=== PATIENT | male | born 1965 | race Caucasian/White ===

== ENCOUNTER 2019-02-16 15:36 | Inpatient (IN) | payer OTHER ==
[~2019-02-16] VITALS: Ht 175.3 cm; Wt 70.3 kg
--- NOTE | 2019-02-16 16:03 | NUR ---
PT BIBSELF FOR FACIAL SWELLING D/T POSSIBLE TOOTH INFECTION; PT [id number], PT ON MONINTOR, VSS, NAD NOTED, PENDING ER PROVIDER KARENAL
[2019-02-16] MEDS ORDERED: IV NS 0.9% 1,000 ML BAG IV ONE (16:30)
[2019-02-16] MEDS ORDERED: CLINDAMYCIN 900 MG in IV D5W 100 ML IV ONE (16:30)
[2019-02-16 16:44] LABS: BASOPHILS # (AUTO) 0.1 /CMM (0.0-0.2); BASOPHILS % (AUTO) 0.5 % (0.0-2.0); EOSINOPHILS % (AUTO) 0.3 % (0.0-6.0); HEMATOCRIT 43 % (39-51); HEMOGLOBIN 14.6 g/dL (13.5-17.5); LYMPHOCYTES # (AUTO) 2.4 /CMM (0.8-4.8); LYMPHOCYTES % (AUTO) 22.9 % (20.0-44.0); MEAN CORPUSCULAR HGB CONC 34 g/dl (31.0-36.0); MEAN CORPUSCULAR VOLUME 88 fL (80-96); MONOCYTES # (AUTO) 1.6 /CMM (0.1-1.30); MONOCYTES % (AUTO) 15.7 % (2.0-12.0); NEUTROPHILS # (AUTO) 6.3 /CMM (1.8-8.9); NEUTROPHILS % (AUTO) 60.6 % (43.0-81.0); PLATELET COUNT (AUTO) 164 /CMM (150-450); RED BLOOD CELL COUNT(AUTO) 4.89 MIL/uL (4.5-6.0); WHITE BLOOD COUNT (AUTO) 10.4 K/uL (4.3-11.0)
[2019-02-16 16:54] LABS: CALCIUM, SERUM 8.9 mg/dL (8.5-10.1); CREATININE 0.9 mg/dL (0.6-1.3); POTASSIUM 3.6 mmol/L (3.5-5.1)
[2019-02-16] MEDS ORDERED: CT SWABBABLE VALVE TRANS SET 1 EA INFUS.SET MC ONE (16:57)
[2019-02-16] MEDS ORDERED: IOHEXOL-300 100 ML VIAL IV ONE (16:57)
[2019-02-16] MEDS ORDERED: IV NS 0.9% 250 ML IV ONE (16:57)
[2019-02-16 16:59] LABS: ALBUMIN 3.3 g/dL (3.4-5.0); BILIRUBIN,DIRECT 0.1 mg/dL (0.0-0.2); BILIRUBIN,TOTAL 0.4 mg/dL (0.2-1.0); TOTAL PROTEIN, SERUM 7.9 g/dL (6.4-8.2)
--- NOTE | 2019-02-16 17:04 | NUR ---
PT TO RADIOLOGY FOR FACIAL CT SCAN VIA WHEELCHAIR
--- NOTE | 2019-02-16 17:45 | NUR ---
CALLED WILLIAM TO READ CT
--- NOTE | 2019-02-16 18:47 | NUR ---
ON PHONE WITH
--- NOTE | 2019-02-16 19:07 | NUR ---
EPIC PAGED, ANIMAL THERAPIST
[2019-02-16 20:00] VITALS: BP 111/68
--- NOTE | 2019-02-16 20:27 | NUR ---
MS [id number]
--- NOTE | 2019-02-16 20:32 | NUR ---
REPORT GIVEN TO RVI RN FOR ALBAN; PT WILL BE TRANSPORTED TO 3RD FLOOR VIA [facility]
[2019-02-16 20:50] VITALS: BP 146/98
--- NOTE | 2019-02-16 20:50 | NUR ---
RECEIVED PATIENT FROM ER FOR DX LEFT SIDED FACIAL CELLULITIS. AO X 3, ABLE TO MAKE NEEDS KNOWN. NO ACUTE DISTRESS NOTED. 5/10 PAIN ON LEFT SIDE OF FACE PER PATIENT. IV SITE PATENT, INTACT; FLUSHED. SKIN INTACT. SAFETY REMINDERS GIVEN. ON LOW BED WITH BILATERAL UPPER SIDE RAILS UP. CALL ROSS WITHIN EASY REACH. WILL CONTINUE TO MONITOR.
[2019-02-16] MEDS ORDERED: ZOLPIDEM TARTRATE 5 MG TABLET PO PRN (21:30)
[2019-02-16] MEDS ORDERED: HYDROCODONE/APAP 5/325MG 1 EACH TABLET PO PRN (21:30)
[2019-02-16] MEDS ORDERED: MORPHINE SULFATE INJ 2 MG/ML DISP.SYRIN IV PRN (21:30)
[2019-02-16] MEDS ORDERED: MAG HYDROX/AL HYDROX/SIMETH 30 ML UDC PO PRN (21:30)
[2019-02-16] MEDS ORDERED: MAGNESIUM HYDROXIDE 30 ML UDC PO PRN (21:30)
[2019-02-16] MEDS ORDERED: Z GUARD REMEDY 2 OZ OINT TP PRN (21:30)
[2019-02-16] MEDS ORDERED: ACETAMINOPHEN 325 MG TABLET PO PRN (21:30)
[2019-02-16] MEDS ORDERED: ONDANSETRON HCL/PF 4 MG/2 ML VIAL IVP PRN (21:30)
[2019-02-16] MEDS: IV NS 0.9% 1,000 ML IV PRN (22:21)
[2019-02-17] MEDS ORDERED: VANCOMYCIN 1 GM in IV NS 0.9% 250 ML IV SCH (04:00)
[2019-02-17] MEDS ORDERED: VANCOMYCIN 1 GM in IV NS 0.9% 250 ML IV STA (04:12)
[2019-02-17] MEDS ORDERED: VANCOMYCIN 1 GM VIAL ONE (04:49)
[2019-02-17] MEDS ORDERED: PIPERACILLIN /TAZOBACTAM 2.25 G VIAL IV ONE (05:54)
[2019-02-17] MEDS ORDERED: PIPERACILLIN /TAZOBACTAM 4.5 G in IV D5W 50 ML IV SCH (06:00)
--- NOTE | 2019-02-17 06:15 | NUR ---
PATIENT ASLEEP, EASILY AROUSABLE. RESPIRATIONS EVEN. NO SIGNS OF PAIN NOTED. DUE MEDS GIVEN WITH NO ASE NOTED. IVF INFUSING ORDERED. NEEDS ATTENDED. SAFETY REMINDERS AND COMFORT MEASURES IN PLACE. WILL GIVE REPORT TO DAY SHIFT FOR CONTINUITY OF CARE.
[2019-02-17 06:27] LABS: BASOPHILS % (AUTO) 0.3 % (0.0-2.0); EOSINOPHILS % (AUTO) 0.5 % (0.0-6.0); HEMATOCRIT 42 % (39-51); HEMOGLOBIN 14.2 g/dL (13.5-17.5); LYMPHOCYTES # (AUTO) 1.9 /CMM (0.8-4.8); LYMPHOCYTES % (AUTO) 17.6 % (20.0-44.0); MEAN CORPUSCULAR HGB CONC 34 g/dl (31.0-36.0); MEAN CORPUSCULAR VOLUME 88 fL (80-96); MONOCYTES # (AUTO) 1.4 /CMM (0.1-1.30); MONOCYTES % (AUTO) 13.5 % (2.0-12.0); NEUTROPHILS # (AUTO) 7.2 /CMM (1.8-8.9); NEUTROPHILS % (AUTO) 68.1 % (43.0-81.0); PLATELET COUNT (AUTO) 174 /CMM (150-450); RED BLOOD CELL COUNT(AUTO) 4.76 MIL/uL (4.5-6.0); WHITE BLOOD COUNT (AUTO) 10.6 K/uL (4.3-11.0)
[2019-02-17 06:43] LABS: CALCIUM, SERUM 8.5 mg/dL (8.5-10.1); CREATININE 0.8 mg/dL (0.6-1.3); MAGNESIUM 1.8 mg/dL (1.8-2.4); PHOSPHORUS 2.8 mg/dL (2.5-4.9); POTASSIUM 3.5 mmol/L (3.5-5.1)
[2019-02-17] MEDS ORDERED: RALT400T PO (07:43)
[2019-02-17] MEDS ORDERED: ATOR40TA PO (07:43)
[2019-02-17] MEDS ORDERED: CHOL100040 PO (07:44)
[2019-02-17] MEDS ORDERED: EMTR1TAB17 PO (07:44)
--- NOTE | 2019-02-17 07:49 | NUR ---
MS RN OPENING NOTES RECEIVED PATIENT IN STABLE CONDITION. IN NO APPARENT DISTRESS. BEDSIDE RAILS ARE UPX2. BED IS LOCKED AND LOWERED. CALL LIGHT IS WITHIN REACH. IV LINE IS INTACT AND PATENT. WILL CONTINUE TO MONITOR PATIENT.
[2019-02-17 08:00] VITALS: BP 125/91
[2019-02-17] MEDS ORDERED: FEE PK DOSING 1 MIN EA MC ONE (08:07)
[2019-02-17] MEDS: SULFAMETH/TRIMETH 800/160 MG 1 UDTAB TABLET PO SCH (08:09)
[2019-02-17] MEDS: PIPERACILLIN /TAZOBACTAM 3.375 G in IV D5W 50 ML IV SCH ×2 (11:19→18:44)
[2019-02-17] MEDS: VANCOMYCIN 1.25 GM in IV D5W 500 ML IV SCH (16:03)
--- NOTE | 2019-02-17 19:01 | NUR ---
MS RN CLOSING NOTES PATIENT IS IN STABLE CONDITION. IN NO APPARENT DISTRESS. BEDSIDE RAILS ARE UPX2. BED IS LOCKED AND LOWERED. CALL LIGHT IS WITHIN REACH. IV LINE IS INTACT AND PATENT. ALL NEEDS WERE MET. WILL ENDORSE CARE TO WEB PORTAL DEVELOPER NURSE FOR ALBAN.
--- NOTE | 2019-02-17 19:30 | NUR ---
RECEIVED PATIENT IN BED AWAKE. AO X 3, ABLE TO MAKE NEEDS KNOWN. NO ACUTE DISTRESS NOTED. MONITORED FOR PAIN. IV SITE PATENT, INTACT; IVF INFUSING ORDERED. SAFETY REMINDERS GIVEN. ON LOW BED WITH BILATERAL UPPER SIDE RAILS UP. CALL ROSS WITHIN EASY REACH. WILL CONTINUE TO MONITOR.
[2019-02-17 20:00] VITALS: BP_SYST 140; BP_SYST 146; BP_DIAS 71; BP_DIAS 86
[2019-02-17] MEDS: IV NS 0.9% 1,000 ML IV PRN (20:29)
[2019-02-18] MEDS: PIPERACILLIN /TAZOBACTAM 3.375 G in IV D5W 50 ML IV SCH ×4 (00:10→18:46)
[2019-02-18] MEDS: VANCOMYCIN 1.25 GM in IV D5W 500 ML IV SCH ×2 (04:09→16:17)
[2019-02-18 06:35] LABS: BASOPHILS % (AUTO) 0.3 % (0.0-2.0); EOSINOPHILS % (AUTO) 1.5 % (0.0-6.0); HEMATOCRIT 42 % (39-51); HEMOGLOBIN 14.3 g/dL (13.5-17.5); MEAN CORPUSCULAR HGB CONC 34 g/dl (31.0-36.0); MEAN CORPUSCULAR VOLUME 88 fL (80-96); MONOCYTES % (AUTO) 15.3 % (2.0-12.0); NEUTROPHILS % (AUTO) 51.9 % (43.0-81.0); PLATELET COUNT (AUTO) 182 /CMM (150-450); RED BLOOD CELL COUNT(AUTO) 4.79 MIL/uL (4.5-6.0); WHITE BLOOD COUNT (AUTO) 6.2 K/uL (4.3-11.0)
[2019-02-18 06:36] LABS: LYMPHOCYTES # (AUTO) 1.9 /CMM (0.8-4.8); MONOCYTES # (AUTO) 0.9 /CMM (0.1-1.30); NEUTROPHILS # (AUTO) 3.2 /CMM (1.8-8.9)
[2019-02-18 07:01] LABS: CALCIUM, SERUM 8.6 mg/dL (8.5-10.1); CREATININE 1.1 mg/dL (0.6-1.3)
--- NOTE | 2019-02-18 07:45 | NUR ---
MS RN Opening Notes Patient asleep, resting in bed. Semi-Fowlers position. Alert and oriented x3, able to make needs known. No complaints of pain at this time. Respirations even and unlabored on room air, no acute distress noted. Peripheral IV to the right hand 20 gauge, intact, patent and infusing fluids as ordered. Updated patient on current plan of care and safety measures. Safety and fall precautions in place: bed in lowest and locked position, side rails up x2, bed alarm on, call light and personal possessions within reach. Will continue to monitor and intervene as needed.
[2019-02-18 08:00] VITALS: BP 132/91
[2019-02-18] MEDS: SULFAMETH/TRIMETH 800/160 MG 1 UDTAB TABLET PO SCH (08:42)
--- NOTE | 2019-02-18 12:11 | NUR ---
Patient now has personal phone refrigerator mover unit and cord at bedside, made notation on personal belongings form. Also, spoke with security staff about patient's vehicle parked in the ED parking (in front of ER). Per security, they will make a notation and not tow patient's vehicle away. Patient was updated about status.
[2019-02-18 15:43] VITALS: BP 105/72
--- NOTE | 2019-02-18 18:21 | NUR ---
MS RN Closing Notes Patient awake, resting in bed. Semi-Fowlers position. Alert and oriented x3, able to make needs known. No complaints of pain at this time. Respirations even and unlabored on room air, no acute distress noted. Peripheral IV to the right hand 20 gauge, intact, patent and infusing fluids/antibiotics as ordered. No acute events this shift. All due medications given. Updated patient on current plan of care and safety measures. Safety and fall precautions in place: bed in lowest and locked position, side rails up x2, bed alarm on, call light and personal possessions within reach. Will endorse to costumed character entertainer RN for continuity of care.
[2019-02-18] MEDS: IV NS 0.9% 1,000 ML IV PRN (18:47)
--- NOTE | 2019-02-18 19:35 | NUR ---
MS/RN NOTES RECEIVED PT. LYING IN BED. PT. IS AWAKE, ALERT AND ORIENTED X3. BREATHING EVEN AND UNLABORED ON ROOM AIR. NO SOB, RESPIRATORY DISTRESS OR COMPLAINTS OF PAIN NOTED AT THIS TIME. PT. WITH RIGHT WRIST 20 GAUGE IV NS @ 75 ML/HR. BED LOCKED AND IN LOWEST POSITION, SIDE RAILS UP X2, CALL LIGHT WITHIN REACH, WILL CONTINUE TO MONITOR.
[2019-02-18 20:07] VITALS: BP 115/72
[2019-02-19] MEDS: PIPERACILLIN /TAZOBACTAM 3.375 G in IV D5W 50 ML IV SCH ×2 (00:02→07:30)
[2019-02-19] MEDS: VANCOMYCIN 1.25 GM in IV D5W 500 ML IV SCH (05:16)
--- NOTE | 2019-02-19 06:30 | NUR ---
MS/RN NOTES PT. IS LYING IN BED RESTING. BREATHING EVEN AND UNLABORED ON ROOM AIR. NO SOB, RESPIRATORY DISTRESS OR COMPLAINTS OF PAIN NOTED AT THIS TIME. PT. WITH RIGHT WRIST 20 GAUGE IV NS @ 75 ML/HR. ALL PT. NEEDS MET. BED LOCKED AND IN LOWEST POSITION, SIDE RAILS UP X2, CALL LIGHT WITHIN REACH, WILL ENDORSE TO DAYSHIFT NURSE FOR CONTINUITY OF CARE.
[2019-02-19 07:06] LABS: *BASOS 0 % (Not Estab.); *EOS 1 % (Not Estab.); *EOS, ABSOLUTE 0.1 x10E3/uL (0.0-0.4); *HCT 44.4 % (37.5-51.0); *HGB 14.3 g/dL (13.0-17.7); *IMMATURE GRANULOCYTES 0 % (Not Estab.); *LYMPHOCYTES 35 % (Not Estab.); *LYMPHS, ABSOLUTE 2.4 x10E3/uL (0.7-3.1); *MCH 29.2 pg (26.6-33.0); *MCHC 32.2 g/dL (31.5-35.7); *MCV 91 fL (79-97); *MONOCYTES 12 % (Not Estab.); *MONOS, ABSOLUTE 0.8 x10E3/uL (0.1-0.9); *NEUTROPHILS 52 % (Not Estab.); *NEUTROPHILS, ABSOLUTE 3.4 x10E3/uL (1.4-7.0); *PLT 214 x10E3/uL (150-379); *RDW 14.3 % (12.3-15.4)
--- NOTE | 2019-02-19 07:50 | NUR ---
M/S RN PATIENT A/O X 4 AND ABLE TO MAKE NEEDS KNOWN. NO PRESENCE OF RESPIRATORY DISTRESS. ABDOMEN SOFT AND NON DISTENDED WITCH ACTIVE BOWEL SOUNDS. SKIN WARM TO TOUCH INTACT AND DRY. DENIES PAIN AND DISCOMFORT. IV SITE ON RIGHT WRIST WITH NO S.SX OF INFILTRATION, PERFORMED SALINE FLUSH AND PATENT. ALL CONCERNS ADDRESS. PLACED CALL LIGHT WITHIN REACH TO ENSURE SAFETY. WILL CONTINUE TO EVALUATE CARE.
[2019-02-19 08:00] VITALS: BP 111/88
[2019-02-19] MEDS: SULFAMETH/TRIMETH 800/160 MG 1 UDTAB TABLET PO SCH (08:23)
--- NOTE | 2019-02-19 08:24 | NUR ---
M/S RN PATIENT SEEN BY DR. AMBROCIO WITH NEW ORDER FOR D/C. BEDSIDE CARE DONE WITH PATIENT. WILL CONTINUE TO EVALUATE CARE.
[2019-02-19] MEDS ORDERED: CLIN300C11 PO (08:30)
[2019-02-19 08:51] LABS: CREATININE 1.1 mg/dL (0.6-1.3); POTASSIUM 4.2 mmol/L (3.5-5.1)
[2019-02-19 10:11] LABS: *% CD 4 POS. LYMPH 6.5 % (30.8-58.5); *% CD 8 POS. LYMPH 73.8 % (12.0-35.5); *ABSOLUTE CD 4 HELPER 156 /uL (359-1519); *ABSOLUTE CD 8 SUPPRESSOR 1771 /uL (109-897); *CD4/CD8 RATIO 0.09 (0.92-3.72)
--- NOTE | 2019-02-19 11:07 | NUR ---
MS/LOAN MANAGER PATIENT DISCHARGE HOME IN STABLE CONDITION. A/O X 4. NO SIGNS OF ACUTE DISTRESS. NO COMPLAIN OF PAIN OR DISCOMFORT. DISCHARGE EDUCATION AND TEACHINGS PROVIDED, MADE AWARE TO FOLLOW UP WITH PRIMARY PHYSICIAN AND FOLLOW UP VIRAL LOAD COUNT, HIV CLINIC WITHIN A WEEK. PRESCRIPTION FOR CLINDAMYCIN ATB PROVIDED AND MADE AWARE TO TAKE IT ORDERED. PATIENT VERBALIZED UNDERSTANDING. NAME BAND AND IV LINE REMOVED. ALL NEEDS ATTENDED TO. LEFT IN STABLE CONDITION SELF ACCOMPANIED.
[2019-02-22 18:08] LABS: *HIV-1 RNA BY PCR 18420 copies/mL (.); *HIV-1 log10 RNA 4.265 (.)
== END 2019-02-19 10:45 | disposition home or self-care (01) | DRG 603 ==
LOC: ER 15:42 → MED 20:35
PROVIDERS: ADMIT Internal Medicine; ATTEND Family Medicine
DX: L03.211 Cellulitis of face (principal); K04.7 Periapical abscess without sinus; E78.5 Hyperlipidemia, unspecified; F15.10 Other stimulant abuse, uncomplicated; K05.6 Periodontal disease, unspecified; F17.210 Nicotine dependence, cigarettes, uncomplicated; F12.90 Cannabis use, unspecified, uncomplicated; Z85.828 Personal history of other malignant neoplasm of skin; Z91.19 Patient's noncompliance with other medical treatment and regimen
CPT/HCPCS: 36415; 70487-TC; 80048-TC; 80061-TC; 80076-TC; 80202-TC; 83605-TC; 83735-TC; 84100-TC; 85025-TC; 85730-TC; 86360; 87040-TC; 87081-TC; 87536; G0378; J2543; J3370; J3490; J7030; J7050; J7060; Q9967